=== PATIENT | female | born 1955 | race Caucasian/White ===

== ENCOUNTER 2024-06-05 21:22 | Inpatient (IN) | payer MEDICARE, OTHER ==
[~2024-06-05] VITALS: Ht 152.4 cm; Wt 41.7 kg
[2024-06-05] MEDS ORDERED: SODIUM CHLORIDE FLUSH 10 ML SYR INJ PRN (21:45)
[2024-06-05] MEDS: FUROSEMIDE INJ 10 MG/ML 4 ML VIAL IV ONE (22:53)
[2024-06-05 23:11] LABS: ALBUMIN 3.6 g/dL (3.5-5.0); ALBUMIN/GLOBULIN RATIO 0.8 (0.8-2.0); ANION GAP 18.4 mmol/L (8-16); BILIRUBIN,TOTAL 1.5 mg/dL (0.2-1.2); CALCIUM 9.3 mg/dL (8.4-10.2); CREATININE, SERUM 1.21 mg/dL (0.57-1.11); POTASSIUM 4.4 mmol/L (3.5-5.1); TOTAL PROTEIN 7.9 g/dL (6.5-8.1)
[2024-06-05 23:17] LABS: TROPONIN I 0.232 ng/mL (0-0.300)
[2024-06-06] VITALS (17 sets, daily range): BP systolic 108–172; BP diastolic 55–96; PULSE 61–109; RESP 18–24; TEMP 96.8–98.2; O2SAT 89–100
[2024-06-06] MEDS ORDERED: SODIUM CHLORIDE FLUSH 10 ML SYR INJ PRN
[2024-06-06] MEDS ORDERED: CLONIDINE HCL 0.1 MG TAB ONE (00:28)
[2024-06-06 00:47] LABS: BASOPHILS # (AUTO) 0.1 (0.0-0.1); BASOPHILS % 0.7 % (0.0-1.0); EOSINOPHILS # (AUTO) 0.1 (0.0-0.4); EOSINOPHILS % 0.6 % (0.0-6.0); HEMATOCRIT 46.2 % (34.2-44.1); HEMOGLOBIN 12.5 g/dL (12.0-16.0); LYMPHOCYTES # (AUTO) 1.6 (1.0-3.2); LYMPHOCYTES % 19.4 % (18.0-39.1); MEAN CORPUSCULAR HEMOGLOBIN 22.2 pg (28-32); MEAN CORPUSCULAR HGB CONC 27.1 g/dL (31-35); MEAN CORPUSCULAR VOLUME 82.1 fL (81-99); MONOCYTES # (AUTO) 0.5 (0.2-0.8); MONOCYTES % 5.9 % (4.4-11.3); NEUTROPHILS # (AUTO) 5.9 (2.1-6.9); NEUTROPHILS % 73.2 % (38.7-80.0); PLATELET COUNT 172 x10e3/uL (140-360); RED BLOOD COUNT 5.63 x10e6/uL (3.6-5.1); RED CELL DISTRIBUTION WIDTH 20.7 % (11.7-14.4); WHITE BLOOD COUNT 8.11 x10e3/uL (4.8-10.8)
[2024-06-06 01:04] LABS: TROPONIN I 0.229 ng/mL (0-0.300)
[2024-06-06] MEDS: CLONIDINE HCL 0.2 MG TAB PO ONE (01:09)
[2024-06-06] MEDS ORDERED: HYDRALAZINE HCL 20 MG/ML VIAL IV PRN ×2 (02:45→14:15)
[2024-06-06 03:18] LABS: ANISOCYTOSIS SLIGHT; HYPOCHROMASIA SLIGHT; OVALOCYTES FEW
[2024-06-06 03:19] LABS: PLATELET ESTIMATE ADEQUATE; PLATELET MORPHOLOGY COMMENT NORMAL; RBC MORPHOLOGY COMMENT ABNORMAL
[2024-06-06] MEDS: ALBUTEROL/IPRATROPIUM 3 ML NEB NEB SCH (03:30)
[2024-06-06 06:46] LABS: TROPONIN I 0.22 ng/mL (0-0.300)
[2024-06-06] MEDS: FUROSEMIDE INJ 10 MG/ML 4 ML VIAL IV SCH (09:26)
[2024-06-06] MEDS ORDERED: ACETAMINOPHEN 325 MG TAB PO PRN (14:15)
[2024-06-06] MEDS ORDERED: DOCUSATE SODIUM 100 MG CAP PO PRN (14:15)
[2024-06-06] MEDS ORDERED: DEXTROSE 50% SYRINGE 50 ML IV PRN (14:15)
[2024-06-06] MEDS ORDERED: DIPHENHYDRAMINE HCL 25 MG CAP PO PRN (14:15)
[2024-06-06] MEDS ORDERED: ALBUTEROL/IPRATROPIUM 3 ML NEB NEB PRN (14:15)
[2024-06-06] MEDS ORDERED: SIMETHICONE 80 MG CHEW PO PRN (14:15)
[2024-06-06] MEDS ORDERED: NICOTINE 7 MG PATCH TOP PRN (15:45)
[2024-06-06] MEDS: METOLAZONE 5 MG TAB PO ONE (16:03)
[2024-06-06] MEDS: SODIUM BICARBONATE 650 MG TAB PO SCH (16:04)
[2024-06-06] MEDS: FUROSEMIDE INJ 100 MG in SODIUM CHLORIDE 0.9% 90 ML IV SCH (16:04)
[2024-06-06] MEDS: THIAMINE HCL 100 MG TAB PO SCH (16:04)
[2024-06-06] MEDS: BENZONATATE 100 MG CAP PO PRN (16:05)
[2024-06-06] MEDS: CARVEDILOL 3.125 MG TAB PO SCH (16:06)
[2024-06-06] MEDS: ENOXAPARIN SOD INJ 40 MG/0.4 ML SYR SC SCH (16:19)
[2024-06-06 16:22] LABS: TROPONIN I 0.171 ng/mL (0-0.300)
[2024-06-06 20:16] LABS: ABG PH 7.49 (7.35-7.45)
[2024-06-06 20:17] LABS: ABG HCO3 30 mmol/L (22-26); ABG PCO2 39 mmHg (35-45); ABG PO2 174 mmHg (80-105); ABG TCO2 31
[2024-06-06] MEDS: ATORVASTATIN 20 MG TAB PO SCH (20:43)
[2024-06-06 23:00] LABS: AMPHETAMINES SCREEN,URINE NEGATIVE (NEGATIVE); OPIATES SCREEN,URINE NEGATIVE (NEGATIVE); PHENCYCLIDINE SCREEN,URINE NEGATIVE (NEGATIVE)
[2024-06-06 23:01] LABS: BENZODIAZEPINES SCREEN,URINE NEGATIVE (NEGATIVE); CANNABINOIDS SCREEN,URINE NEGATIVE (NEGATIVE); METHADONE SCREEN, URINE NEGATIVE (NEGATIVE)
[2024-06-07] VITALS (14 sets, daily range): BP systolic 108–128; BP diastolic 55–77; PULSE 63–82; RESP 16–21; TEMP 97.2–98; O2SAT 91–100
[2024-06-07] MEDS: IBUPROFEN 400 MG TAB PO ONE (07:20)
[2024-06-07] MEDS: PANTOPRAZOLE SOD 40 MG TABEC PO SCH (07:20)
[2024-06-07 07:26] LABS: BASOPHILS # (AUTO) 0.1 (0.0-0.1); BASOPHILS % 0.6 % (0.0-1.0); EOSINOPHILS # (AUTO) 0.3 (0.0-0.4); EOSINOPHILS % 4.2 % (0.0-6.0); HEMATOCRIT 38.9 % (34.2-44.1); HEMOGLOBIN 11.1 g/dL (12.0-16.0); LYMPHOCYTES # (AUTO) 1.1 (1.0-3.2); LYMPHOCYTES % 13.6 % (18.0-39.1); MEAN CORPUSCULAR HEMOGLOBIN 22.5 pg (28-32); MEAN CORPUSCULAR HGB CONC 28.5 g/dL (31-35); MEAN CORPUSCULAR VOLUME 78.9 fL (81-99); MONOCYTES # (AUTO) 0.5 (0.2-0.8); MONOCYTES % 5.9 % (4.4-11.3); NEUTROPHILS # (AUTO) 6.1 (2.1-6.9); NEUTROPHILS % 75.6 % (38.7-80.0); PLATELET COUNT 176 x10e3/uL (140-360); RED BLOOD COUNT 4.93 x10e6/uL (3.6-5.1); WHITE BLOOD COUNT 8.02 x10e3/uL (4.8-10.8)
[2024-06-07 08:12] LABS: ANION GAP 16.1 mmol/L (8-16); CALCIUM 8.7 mg/dL (8.4-10.2); CREATININE, SERUM 1.47 mg/dL (0.57-1.11); MAGNESIUM 1.5 MG/DL (1.3-2.1); PHOSPHORUS 4.5 MG/DL (2.3-4.7)
[2024-06-07 08:14] LABS: POTASSIUM 3.1 mmol/L (3.5-5.1)
[2024-06-07 08:32] LABS: THYROID STIMULATING HORMONE 2.422 uIU/mL (0.350-4.940)
[2024-06-07 09:06] LABS: EOSINOPHILS % (MANUAL) 2 % (0-7); LYMPHOCYTES % (MANUAL) 16 % (19-48); MONOCYTES % (MANUAL) 2 % (3.4-9.0); NEUTROPHILS % (MANUAL) 79 % (40-74); PLATELET ESTIMATE ADEQUATE; PLATELET MORPHOLOGY COMMENT NORMAL; RBC MORPHOLOGY COMMENT NORMAL; REACTIVE LYMPHOCYTES 1
[2024-06-07] MEDS: ASPIRIN 81 MG ENTERIC COATED PO SCH (09:27)
[2024-06-07] MEDS: POTASSIUM CHLORIDE 20 MEQ TAB CR PO PRN (09:28)
[2024-06-07] MEDS: POTASSIUM CHLORIDE 20 MEQ TAB CR PO ONE (12:16)
[2024-06-07] MEDS: FUROSEMIDE INJ 10 MG/ML 2 ML VIAL IV SCH (13:29)
[2024-06-07] MEDS ORDERED: FUROSEMIDE INJ 10 MG/ML 2 ML VIAL IV SCH (17:00)
[2024-06-08] VITALS (12 sets, daily range): BP systolic 97–124; BP diastolic 51–95; PULSE 63–88; RESP 17–20; TEMP 97.2–98.1; O2SAT 95–100
[2024-06-08] MEDS: MELATONIN 5 MG TABLET PO PRN (00:38)
[2024-06-08] MEDS: FUROSEMIDE 40 MG TAB PO SCH (08:50)
[2024-06-08 10:51] LABS: ANION GAP 14.1 mmol/L (8-16); CALCIUM 8.7 mg/dL (8.4-10.2); CREATININE, SERUM 1.63 mg/dL (0.57-1.11); POTASSIUM 4.1 mmol/L (3.5-5.1)
[2024-06-08] MEDS: SODIUM CHLORIDE 0.9% 500ML 500 ML IV ONE (14:09)
[2024-06-08] MEDS: ONDANSETRON HCL INJ 2MG/ML 2ML 2 MG/ML VIAL IV PRN (14:09)
[2024-06-09] VITALS (11 sets, daily range): BP systolic 100–135; BP diastolic 59–90; PULSE 65–90; RESP 18–20; TEMP 97.4–97.9; O2SAT 92–100
[2024-06-09 05:41] LABS: BASOPHILS % 0.3 % (0.0-1.0); EOSINOPHILS # (AUTO) 0.2 (0.0-0.4); EOSINOPHILS % 3.1 % (0.0-6.0); HEMOGLOBIN 11.2 g/dL (12.0-16.0); LYMPHOCYTES # (AUTO) 1.6 (1.0-3.2); LYMPHOCYTES % 20.1 % (18.0-39.1); MEAN CORPUSCULAR HEMOGLOBIN 22.4 pg (28-32); MEAN CORPUSCULAR VOLUME 79.8 fL (81-99); MONOCYTES # (AUTO) 0.6 (0.2-0.8); MONOCYTES % 7.2 % (4.4-11.3); NEUTROPHILS # (AUTO) 5.4 (2.1-6.9); NEUTROPHILS % 68.9 % (38.7-80.0); PLATELET COUNT 218 x10e3/uL (140-360); RED BLOOD COUNT 5.01 x10e6/uL (3.6-5.1); RED CELL DISTRIBUTION WIDTH 19.7 % (11.7-14.4); WHITE BLOOD COUNT 7.76 x10e3/uL (4.8-10.8)
[2024-06-09 06:56] LABS: ANION GAP 15.3 mmol/L (8-16); CALCIUM 9.2 mg/dL (8.4-10.2); CREATININE, SERUM 1.85 mg/dL (0.57-1.11)
[2024-06-09 07:14] LABS: POTASSIUM 3.3 mmol/L (3.5-5.1)
[2024-06-09] MEDS: POTASSIUM CHLORIDE 20 MEQ TAB CR PO ONE (11:18)
[2024-06-09] MEDS: SODIUM CHLORIDE 0.9% 500ML 500 ML IV ONE (11:18)
[2024-06-09 16:40] LABS: ANION GAP 17.5 mmol/L (8-16); CALCIUM 8.7 mg/dL (8.4-10.2); CREATININE, SERUM 1.67 mg/dL (0.57-1.11)
[2024-06-09 16:45] LABS: POTASSIUM 4.5 mmol/L (3.5-5.1)
== END 2024-06-09 17:38 | disposition home or self-care (01) | DRG 291 ==
LOC: ER 21:29 → ERHOLD 23:56 → MED/SURG2 06-06 02:30
PROVIDERS: ADMIT Internal Medicine; ATTEND Internal Medicine
DX: I13.0 Hypertensive heart and chronic kidney disease with heart failure and stage 1 through stage 4 chronic kidney disease, or unspecified chronic kidney disease (principal); I50.43 Acute on chronic combined systolic (congestive) and diastolic (congestive) heart failure; J96.21 Acute and chronic respiratory failure with hypoxia; J96.22 Acute and chronic respiratory failure with hypercapnia; N17.9 Acute kidney failure, unspecified; E87.20 Acidosis, unspecified; Z68.1 Body mass index [BMI] 19.9 or less, adult; R63.6 Underweight; Z99.81 Dependence on supplemental oxygen; I42.0 Dilated cardiomyopathy; N18.30 Chronic kidney disease, stage 3 unspecified; J44.9 Chronic obstructive pulmonary disease, unspecified; I25.10 Atherosclerotic heart disease of native coronary artery without angina pectoris; F19.10 Other psychoactive substance abuse, uncomplicated; Z79.82 Long term (current) use of aspirin; Z95.5 Presence of coronary angioplasty implant and graft; Z90.710 Acquired absence of both cervix and uterus; F17.210 Nicotine dependence, cigarettes, uncomplicated; Z82.49 Family history of ischemic heart disease and other diseases of the circulatory system
CPT/HCPCS: 36415; 36600; 70450; 71045; 76604; 80048; 80053; 80307; 82550; 82805; 83036; 83735; 83880; 84100; 84443; 84484; 85025; 93005; 93306; 94640; 94660; 94799; 99284; J1650; J1940; J2405; J3411; J7040; J7050

== ENCOUNTER 2024-08-18 16:49 | Inpatient (IN) | payer MEDICARE ==
[~2024-08-18] VITALS: Ht 152.4 cm; Wt 41.7 kg
[2024-08-18 17:21] LABS: BASOPHILS % 0.5 % (0.0-1.0); EOSINOPHILS # (AUTO) 0.1 (0.0-0.4); EOSINOPHILS % 0.9 % (0.0-6.0); HEMATOCRIT 40.1 % (34.2-44.1); HEMOGLOBIN 11.3 g/dL (12.0-16.0); LYMPHOCYTES # (AUTO) 1.4 (1.0-3.2); MEAN CORPUSCULAR HEMOGLOBIN 24.5 pg (28-32); MEAN CORPUSCULAR HGB CONC 28.2 g/dL (31-35); MONOCYTES # (AUTO) 0.5 (0.2-0.8); MONOCYTES % 6.4 % (4.4-11.3); NEUTROPHILS # (AUTO) 6.1 (2.1-6.9); PLATELET COUNT 177 x10e3/uL (140-360); RED BLOOD COUNT 4.61 x10e6/uL (3.6-5.1); RED CELL DISTRIBUTION WIDTH 21.1 % (11.7-14.4); WHITE BLOOD COUNT 8.13 x10e3/uL (4.8-10.8)
[2024-08-18 19:01] LABS: AMPHETAMINES SCREEN,URINE NEGATIVE (NEGATIVE); BENZODIAZEPINES SCREEN,URINE NEGATIVE (NEGATIVE); COCAINE SCREEN,URINE NEGATIVE (NEGATIVE); OPIATES SCREEN,URINE NEGATIVE (NEGATIVE); PHENCYCLIDINE SCREEN,URINE NEGATIVE (NEGATIVE)
[2024-08-18 19:02] LABS: CANNABINOIDS SCREEN,URINE POSITIVE (NEGATIVE); METHADONE SCREEN, URINE NEGATIVE (NEGATIVE)
[2024-08-18 19:03] VITALS: TEMP 97.7
[2024-08-18 19:06] LABS: ALBUMIN 3.1 g/dL (3.5-5.0); ALBUMIN/GLOBULIN RATIO 0.8 (0.8-2.0); ANION GAP 16.8 mmol/L (8-16); BILIRUBIN,TOTAL 1.3 mg/dL (0.2-1.2); CALCIUM 8.8 mg/dL (8.4-10.2); CREATININE, SERUM 1.2 mg/dL (0.57-1.11); POTASSIUM 4.8 mmol/L (3.5-5.1)
[2024-08-18 19:11] LABS: TROPONIN I 0.002 ng/mL (0-0.300)
[2024-08-18] MEDS: SODIUM CHLORIDE 0.9% 500ML 500 ML IV ONE (20:26)
[2024-08-18] MEDS: LABETALOL HCL 5 MG/ML 20ML VIAL IV STA (20:27)
[2024-08-18] MEDS ORDERED: LABETALOL HCL 20 ML ONE (20:29)
[2024-08-18] MEDS ORDERED: IOPAMIDOL 370 MG/ML 100 ML INFUS..BTL INJ ONE (20:31)
[2024-08-18 21:39] VITALS: PULSE 83; RESP 22
[2024-08-18] MEDS ORDERED: SODIUM CHLORIDE FLUSH 10 ML SYR INJ PRN (22:45)
[2024-08-18] MEDS ORDERED: ONDANSETRON HCL INJ 2MG/ML 2ML 2 MG/ML VIAL IV PRN (22:45)
[2024-08-18] MEDS: ASPIRIN 81 MG CHEW TAB PO ONE (23:37)
[2024-08-19] VITALS (14 sets, daily range): BP systolic 110–171; BP diastolic 57–112; PULSE 63–95; RESP 17–24; TEMP 96.9–97.8; O2SAT 96–100
[2024-08-19] MEDS: ALBUTEROL/IPRATROPIUM 3 ML NEB NEB SCH (04:15)
[2024-08-19] MEDS: ALBUTEROL/IPRATROPIUM 3 ML NEB ONE (04:22)
[2024-08-19 07:33] LABS: BASOPHILS % 0.4 % (0.0-1.0); EOSINOPHILS # (AUTO) 0.1 (0.0-0.4); EOSINOPHILS % 0.6 % (0.0-6.0); HEMATOCRIT 39.4 % (34.2-44.1); HEMOGLOBIN 11.5 g/dL (12.0-16.0); LYMPHOCYTES # (AUTO) 1.6 (1.0-3.2); LYMPHOCYTES % 19.4 % (18.0-39.1); MEAN CORPUSCULAR HEMOGLOBIN 24.6 pg (28-32); MEAN CORPUSCULAR HGB CONC 29.2 g/dL (31-35); MEAN CORPUSCULAR VOLUME 84.2 fL (81-99); MONOCYTES # (AUTO) 0.4 (0.2-0.8); MONOCYTES % 5.3 % (4.4-11.3); NEUTROPHILS % 73.8 % (38.7-80.0); PLATELET COUNT 153 x10e3/uL (140-360); RED BLOOD COUNT 4.68 x10e6/uL (3.6-5.1); RED CELL DISTRIBUTION WIDTH 20.5 % (11.7-14.4); WHITE BLOOD COUNT 8.15 x10e3/uL (4.8-10.8)
[2024-08-19 07:53] LABS: ALBUMIN 2.9 g/dL (3.5-5.0); ALBUMIN/GLOBULIN RATIO 0.9 (0.8-2.0); ANION GAP 17.5 mmol/L (8-16); BILIRUBIN,TOTAL 1.4 mg/dL (0.2-1.2); CALCIUM 8.6 mg/dL (8.4-10.2); CREATININE, SERUM 1.26 mg/dL (0.57-1.11); POTASSIUM 4.5 mmol/L (3.5-5.1); TOTAL PROTEIN 6.1 g/dL (6.5-8.1)
[2024-08-19 08:04] LABS: TROPONIN I < 0.05 ng/mL (0.0-0.40)
[2024-08-19 08:14] LABS: CREATINE KINASE 71 IU/L (29-168)
[2024-08-19] MEDS ORDERED: ACETAMINOPHEN 325 MG TAB PO PRN (10:15)
[2024-08-19] MEDS: CLONIDINE HCL 0.1 MG TAB PO PRN (10:22)
[2024-08-19] MEDS ORDERED: ASPIRIN 81 MG CHEW TAB PO SCH (12:15)
[2024-08-19] MEDS: FUROSEMIDE 40 MG TAB PO SCH (12:40)
[2024-08-19] MEDS: ASPIRIN 81 MG CHEW TAB PO SCH (12:40)
[2024-08-19] MEDS: CARVEDILOL 12.5 MG TAB PO SCH (12:41)
[2024-08-19] MEDS ORDERED: HYDROXYZINE HCL 25 MG TAB PO PRN (17:45)
[2024-08-19] MEDS: ENOXAPARIN SOD INJ 40 MG/0.4 ML SYR SC SCH (18:35)
[2024-08-19] MEDS: PREDNISONE 20 MG TAB PO SCH (18:35)
[2024-08-19] MEDS: LABETALOL HCL 5 MG/ML 20ML VIAL IV ONE (19:52)
[2024-08-19] MEDS: ATORVASTATIN 20 MG TAB PO SCH (21:13)
[2024-08-19] MEDS: ACETAMINOPHEN 325 MG TAB PO PRN (21:15)
[2024-08-20] VITALS: BP 115/69; PULSE 57; RESP 18; TEMP 97.5; O2SAT 97
[2024-08-20 03:10] VITALS: PULSE 71; RESP 18; O2SAT 99
[2024-08-20 04:00] VITALS: BP 111/68; PULSE 52; RESP 18; TEMP 97.5; O2SAT 100
[2024-08-20 05:35] LABS: BASOPHILS % 0.2 % (0.0-1.0); HEMATOCRIT 38.7 % (34.2-44.1); HEMOGLOBIN 11.3 g/dL (12.0-16.0); LYMPHOCYTES # (AUTO) 0.6 (1.0-3.2); LYMPHOCYTES % 8.7 % (18.0-39.1); MEAN CORPUSCULAR HGB CONC 29.2 g/dL (31-35); MEAN CORPUSCULAR VOLUME 82.3 fL (81-99); MONOCYTES # (AUTO) 0.1 (0.2-0.8); NEUTROPHILS # (AUTO) 5.7 (2.1-6.9); NEUTROPHILS % 88.6 % (38.7-80.0); PLATELET COUNT 140 x10e3/uL (140-360); RED CELL DISTRIBUTION WIDTH 20.2 % (11.7-14.4); WHITE BLOOD COUNT 6.42 x10e3/uL (4.8-10.8)
[2024-08-20 05:54] LABS: ANION GAP 15.8 mmol/L (8-16); CALCIUM 8.1 mg/dL (8.4-10.2); CREATININE, SERUM 1.52 mg/dL (0.57-1.11); POTASSIUM 3.8 mmol/L (3.5-5.1)
[2024-08-20 08:00] VITALS: BP 115/63; PULSE 51; RESP 20; TEMP 97.4; O2SAT 100
[2024-08-20 08:07] VITALS: PULSE 66; RESP 20; O2SAT 99
[2024-08-20 09:48] LABS: ANISOCYTOSIS MODERATE; HYPOCHROMASIA MODERATE; PLATELET ESTIMATE ADEQUATE; PLATELET MORPHOLOGY COMMENT NORMAL; POLYCHROMASIA FEW; RBC MORPHOLOGY COMMENT ABNORMAL
[2024-08-20 12:00] VITALS: BP 111/65; PULSE 58; RESP 20; TEMP 97.5; O2SAT 100
[2024-08-20] MEDS ORDERED: PREDNISONE20 MG PO (12:40)
[2024-08-20] MEDS ORDERED: ATORVASTATIN CA20 MG PO (12:40)
[2024-08-20] MEDS ORDERED: COREG12.5 MG PO (12:40)
[2024-08-20] MEDS ORDERED: ASPIRIN CHEW81 MG PO (12:40)
[2024-08-20] MEDS ORDERED: FUROSEMIDE40 MG PO (12:40)
[2024-08-20] MEDS: INFLUENZA VIRUS VAC SPLIT INJ 0.5 ML SYR IM SCH (13:00)
[2024-08-20] MEDS: PNEUMOCOCCAL VACCINE POLYVALENT 23 MCG/0.5 ML VIAL IM SCH (13:00)
== END 2024-08-20 13:40 | disposition home or self-care (01) | DRG 191 ==
LOC: ER 16:54 → ERHOLD 22:38 → MED/SURG 23:56 → OBSVTOIN 08-20 11:41
PROVIDERS: ADMIT Internal Medicine; ATTEND Internal Medicine
DX: J44.1 Chronic obstructive pulmonary disease with (acute) exacerbation (principal); I11.0 Hypertensive heart disease with heart failure; I50.22 Chronic systolic (congestive) heart failure; T76.01XA Adult neglect or abandonment, suspected, initial encounter; E78.00 Pure hypercholesterolemia, unspecified; F41.9 Anxiety disorder, unspecified; Z91.148 Patient's other noncompliance with medication regimen for other reason; Z90.710 Acquired absence of both cervix and uterus; Z95.5 Presence of coronary angioplasty implant and graft; F17.210 Nicotine dependence, cigarettes, uncomplicated
CPT/HCPCS: 36415; 71045; 71260; 80048; 80053; 80307; 82550; 83880; 84484; 85025; 85379; 93005; 94640; 94799; 99285; G0378; J1650; J7040; J7512; Q9967

== ENCOUNTER 2024-11-03 02:32 | Inpatient (IN) | payer MEDICARE ==
[~2024-11-03] VITALS: Ht 152.4 cm; Wt 44.5 kg
[2024-11-03] VITALS (41 sets, daily range): BP systolic 113–178; BP diastolic 52–104; PULSE 71–118; RESP 18–35; TEMP 97.6–98.7; O2SAT 87–100
[~2024-11-03 02:32] MED LIST: ASPIRIN CHEW81 MG PO; ATORVASTATIN CA20 MG PO; COREG12.5 MG PO; FUROSEMIDE40 MG PO; PREDNISONE20 MG PO
[2024-11-03] MEDS: METHYLPREDNISOLONE SOD SUCC 125 MG/2ML VIAL IV ONE (03:23)
[2024-11-03] MEDS: LORAZEPAM INJ 2 MG/ML VIAL IV ONE (03:26)
[2024-11-03 03:44] LABS: CLARITY,URINE CLEAR (CLEAR); COLOR,URINE YELLOW (YELLOW); LEUKOCYTE ESTERASE ,URINE NEGATIVE (NEGATIVE); NITRITE,URINE NEGATIVE (NEGATIVE); PH,URINE 5.5 (5 - 7)
[2024-11-03 03:45] LABS: AMPHETAMINES SCREEN,URINE POSITIVE (NEGATIVE); BENZODIAZEPINES SCREEN,URINE NEGATIVE (NEGATIVE); GLUCOSE, URINE NEGATIVE (NEGATIVE); KETONES,URINE NEGATIVE (NEGATIVE); OPIATES SCREEN,URINE NEGATIVE (NEGATIVE); PHENCYCLIDINE SCREEN,URINE NEGATIVE (NEGATIVE); PROTEIN,URINE DIPSTICK >=300 (NEGATIVE)
[2024-11-03 03:46] LABS: BILIRUBIN,URINE NEGATIVE (NEGATIVE); CANNABINOIDS SCREEN,URINE POSITIVE (NEGATIVE); COCAINE SCREEN,URINE NEGATIVE (NEGATIVE); METHADONE SCREEN, URINE NEGATIVE (NEGATIVE); URINE UROBILINOGEN 0.2 mg/dL (0.2 - 1)
[2024-11-03 03:50] LABS: BACTERIA,URINE MANY /HPF; EPITHELIAL CELLS,URINE MODERATE /LPF
[2024-11-03 04:04] LABS: BASOPHILS # (AUTO) 0.1 (0.0-0.1); BASOPHILS % 0.5 % (0.0-1.0); EOSINOPHILS % 0.2 % (0.0-6.0); HEMATOCRIT 47.8 % (34.2-44.1); HEMOGLOBIN 13.1 g/dL (12.0-16.0); LYMPHOCYTES # (AUTO) 1.1 (1.0-3.2); LYMPHOCYTES % 10.7 % (18.0-39.1); MEAN CORPUSCULAR HEMOGLOBIN 26.6 pg (28-32); MEAN CORPUSCULAR HGB CONC 27.4 g/dL (31-35); MONOCYTES # (AUTO) 0.6 (0.2-0.8); NEUTROPHILS # (AUTO) 8.4 (2.1-6.9); NEUTROPHILS % 82.3 % (38.7-80.0); PLATELET COUNT 214 x10e3/uL (140-360); RED BLOOD COUNT 4.93 x10e6/uL (3.6-5.1); RED CELL DISTRIBUTION WIDTH 17.6 % (11.7-14.4); WHITE BLOOD COUNT 10.21 x10e3/uL (4.8-10.8)
[2024-11-03] MEDS: IPRATROPIUM BROMIDE 0.02% 2.5 ML NEB NEB ONE (04:20)
[2024-11-03 04:21] LABS: ALBUMIN 3.5 g/dL (3.5-5.0); ALBUMIN/GLOBULIN RATIO 0.9 (0.8-2.0); ANION GAP 21.2 mmol/L (8-16); BILIRUBIN,TOTAL 1.3 mg/dL (0.2-1.2); CALCIUM 9.5 mg/dL (8.4-10.2); CREATININE, SERUM 1.16 mg/dL (0.57-1.11); ETHANOL < 10.0 mg/dL (0.0-10.0); POTASSIUM 4.2 mmol/L (3.5-5.1); TOTAL PROTEIN 7.5 g/dL (6.5-8.1)
[2024-11-03] MEDS: ALBUTEROL SULF 0.083% NEB SOLN 3 ML NEB NEB STA (04:21)
[2024-11-03 04:35] LABS: TROPONIN I 0.125 ng/mL (0-0.300)
[2024-11-03 04:51] LABS: ABG HCO3 23 mmol/L (22-26); ABG PCO2 49 mmHg (35-45); ABG PH 7.28 (7.35-7.45); ABG PO2 108 mmHg (80-105); ABG TCO2 25
[2024-11-03] MEDS ORDERED: SODIUM CHLORIDE FLUSH 10 ML SYR INJ PRN (05:30)
[2024-11-03] MEDS: METHYLPREDNISOLONE SOD SUCC 40 MG/ML VIAL 1ML IV SCH ×2 (05:56→20:25)
[2024-11-03] MEDS: FUROSEMIDE INJ 10 MG/ML 4 ML VIAL IV ONE (05:56)
[2024-11-03] MEDS: ONDANSETRON HCL INJ 2MG/ML 2ML 2 MG/ML VIAL IV STA (05:56)
[2024-11-03] MEDS: ALBUTEROL/IPRATROPIUM 3 ML NEB NEB SCH (05:58)
[2024-11-03] MEDS: ASPIRIN 81 MG CHEW TAB PO SCH (08:55)
[2024-11-03] MEDS: CARVEDILOL 12.5 MG TAB PO SCH (08:56)
[2024-11-03] MEDS: NICOTINE 21 MG/EA PATCH TOP SCH (08:56)
[2024-11-03] MEDS: FUROSEMIDE INJ 10 MG/ML 4 ML VIAL IV SCH (08:58)
[2024-11-03] MEDS ORDERED: ONDANSETRON HCL INJ 2MG/ML 2ML 2 MG/ML VIAL IV PRN (09:19)
[2024-11-03] MEDS ORDERED: ACETAMINOPHEN 325 MG TAB PO PRN (10:00)
[2024-11-03] MEDS ORDERED: LIDOCAINE 4% PATCH TP PRN (10:00)
[2024-11-03] MEDS ORDERED: HYDRALAZINE HCL 20 MG/ML VIAL IV PRN (10:00)
[2024-11-03] MEDS ORDERED: POTASSIUM CHLORIDE 20 MEQ TAB CR PO PRN (10:00)
[2024-11-03] MEDS ORDERED: DIPHENHYDRAMINE HCL 25 MG CAP PO PRN (10:00)
[2024-11-03] MEDS ORDERED: ALBUTEROL/IPRATROPIUM 3 ML NEB NEB PRN (10:00)
[2024-11-03] MEDS ORDERED: DOCUSATE SODIUM 100 MG CAP PO PRN (10:00)
[2024-11-03] MEDS ORDERED: DEXTROSE 50% SYRINGE 50 ML IV PRN (10:00)
[2024-11-03] MEDS ORDERED: SIMETHICONE 80 MG CHEW PO PRN (10:00)
[2024-11-03] MEDS ORDERED: BENZONATATE 100 MG CAP PO PRN (10:00)
[2024-11-03 13:02] LABS: ABG HCO3 28 mmol/L (22-26); ABG PCO2 43 mmHg (35-45); ABG PH 7.41 (7.35-7.45); ABG PO2 178 mmHg (80-105); ABG TCO2 29
[2024-11-03 13:17] LABS: CORONAVIRUS COVID-19 AG NEGATIVE (NEGATIVE); INFLUENZA A AG NEGATIVE (NEGATIVE); INFLUENZA B AG NEGATIVE (NEGATIVE)
[2024-11-03 13:28] LABS: ANION GAP 18.7 mmol/L (8-16); CALCIUM 9.2 mg/dL (8.4-10.2); CREATININE, SERUM 1.1 mg/dL (0.57-1.11); POTASSIUM 3.7 mmol/L (3.5-5.1)
[2024-11-03 13:40] LABS: TROPONIN I 0.21 ng/mL (0.0-0.40)
[2024-11-03] MEDS: ENOXAPARIN SOD INJ 40 MG/0.4 ML SYR SC SCH (16:30)
[2024-11-03] MEDS: ATORVASTATIN 20 MG TAB PO SCH (20:25)
[2024-11-04] VITALS (17 sets, daily range): BP systolic 102–140; BP diastolic 60–87; PULSE 63–93; RESP 16–23; TEMP 98–98.8; O2SAT 95–100
[2024-11-04 06:29] LABS: BASOPHILS % 0.1 % (0.0-1.0); HEMATOCRIT 41.8 % (34.2-44.1); HEMOGLOBIN 12.6 g/dL (12.0-16.0); LYMPHOCYTES # (AUTO) 0.7 (1.0-3.2); LYMPHOCYTES % 4.7 % (18.0-39.1); MEAN CORPUSCULAR HEMOGLOBIN 26.5 pg (28-32); MEAN CORPUSCULAR HGB CONC 30.1 g/dL (31-35); MONOCYTES # (AUTO) 0.4 (0.2-0.8); MONOCYTES % 2.6 % (4.4-11.3); NEUTROPHILS % 92.1 % (38.7-80.0); PLATELET COUNT 198 x10e3/uL (140-360); RED BLOOD COUNT 4.75 x10e6/uL (3.6-5.1); RED CELL DISTRIBUTION WIDTH 17.7 % (11.7-14.4); WHITE BLOOD COUNT 15.23 x10e3/uL (4.8-10.8)
[2024-11-04] MEDS: PANTOPRAZOLE SOD 40 MG TABEC PO SCH (07:44)
[2024-11-04] MEDS: POTASSIUM CHLORIDE 20 MEQ TAB CR PO STA (07:44)
[2024-11-04] MEDS: METHYLPREDNISOLONE SOD SUCC 40 MG/ML VIAL 1ML IV SCH (08:07)
[2024-11-04 08:32] LABS: ANION GAP 15.7 mmol/L (8-16); CALCIUM 8.8 mg/dL (8.4-10.2); CREATININE, SERUM 1.66 mg/dL (0.57-1.11); POTASSIUM 3.7 mmol/L (3.5-5.1)
[2024-11-04 08:53] LABS: TROPONIN I 0.63 ng/mL (0-0.300)
[2024-11-04] MEDS: MELATONIN 5 MG TABLET PO PRN (20:51)
[2024-11-05] VITALS (15 sets, daily range): BP systolic 124–148; BP diastolic 68–120; PULSE 77–91; RESP 17–30; TEMP 97.9–98.7; O2SAT 94–100
[2024-11-05 06:54] LABS: ABG HCO3 23 mmol/L (22-26); ABG PCO2 49 mmHg (35-45); ABG PH 7.28 (7.35-7.45); ABG PO2 108 mmHg (80-105); ABG TCO2 25
[2024-11-05 06:54] LABS: ABG HCO3 28 mmol/L (22-26); ABG PCO2 43 mmHg (35-45); ABG PH 7.41 (7.35-7.45); ABG PO2 178 mmHg (80-105); ABG TCO2 29
[2024-11-05 06:56] LABS: ABG HCO3 27 mmol/L (22-26); ABG PCO2 32 mmHg (35-45); ABG PH 7.53 (7.35-7.45); ABG PO2 174 mmHg (80-105); ABG TCO2 28
[2024-11-05 06:57] LABS: BASOPHILS % 0.4 % (0.0-1.0); EOSINOPHILS # (AUTO) 0.1 (0.0-0.4); EOSINOPHILS % 0.6 % (0.0-6.0); HEMATOCRIT 39.5 % (34.2-44.1); HEMOGLOBIN 11.5 g/dL (12.0-16.0); LYMPHOCYTES # (AUTO) 1.5 (1.0-3.2); LYMPHOCYTES % 13.8 % (18.0-39.1); MEAN CORPUSCULAR HEMOGLOBIN 26.3 pg (28-32); MEAN CORPUSCULAR HGB CONC 29.1 g/dL (31-35); MEAN CORPUSCULAR VOLUME 90.4 fL (81-99); MONOCYTES # (AUTO) 0.6 (0.2-0.8); MONOCYTES % 5.3 % (4.4-11.3); NEUTROPHILS # (AUTO) 8.7 (2.1-6.9); NEUTROPHILS % 79.5 % (38.7-80.0); PLATELET COUNT 192 x10e3/uL (140-360); RED BLOOD COUNT 4.37 x10e6/uL (3.6-5.1); WHITE BLOOD COUNT 10.99 x10e3/uL (4.8-10.8)
[2024-11-05 07:27] LABS: ALBUMIN 2.7 g/dL (3.5-5.0); ANION GAP 14.1 mmol/L (8-16); BILIRUBIN,TOTAL 0.4 mg/dL (0.2-1.2); CALCIUM 8.4 mg/dL (8.4-10.2); CREATININE, SERUM 1.34 mg/dL (0.57-1.11); TOTAL PROTEIN 5.5 g/dL (6.5-8.1)
[2024-11-05 07:47] LABS: POTASSIUM 5.1 mmol/L (3.5-5.1)
[2024-11-05] MEDS: FUROSEMIDE INJ 10 MG/ML 4 ML VIAL IV ONE (18:17)
[2024-11-05] MEDS: SOD POLYSTYRENE SULFONATE SUSP 15 GM/60 ML BTL PO ONE (19:36)
[2024-11-06] VITALS (13 sets, daily range): BP systolic 132–163; BP diastolic 73–94; PULSE 72–89; RESP 16–28; TEMP 97.3–98; O2SAT 94–99
[2024-11-06 07:42] LABS: CALCIUM 8.5 mg/dL (8.4-10.2); CREATININE, SERUM 1.34 mg/dL (0.57-1.11)
[2024-11-06] MEDS: PREDNISONE 20 MG TAB PO SCH (08:05)
== END 2024-11-06 13:55 | disposition home or self-care (01) | DRG 280 ==
LOC: ER 02:42 → ERHOLD 05:28 → ICU 07:30 → MED/SURG3 11-06 10:05 → ICU 11-06 10:13
PROVIDERS: ADMIT Internal Medicine; ATTEND Internal Medicine
PROC: 5A09357 Assistance with Respiratory Ventilation, Less than 24 Consecutive Hours, Continuous Positive Airway Pressure (ICD-10-PCS; principal; 2024-11-03)
PROC: 4A133R1 Monitoring of Arterial Saturation, Peripheral, Percutaneous Approach (ICD-10-PCS; 2024-11-03)
PROC: 02HV33Z Insertion of Infusion Device into Superior Vena Cava, Percutaneous Approach (ICD-10-PCS; 2024-11-03)
DX: I11.0 Hypertensive heart disease with heart failure (principal); I50.23 Acute on chronic systolic (congestive) heart failure; I21.A1 Myocardial infarction type 2; J96.91 Respiratory failure, unspecified with hypoxia; J44.1 Chronic obstructive pulmonary disease with (acute) exacerbation; N39.0 Urinary tract infection, site not specified; Z99.81 Dependence on supplemental oxygen; I25.10 Atherosclerotic heart disease of native coronary artery without angina pectoris; E78.5 Hyperlipidemia, unspecified; E87.5 Hyperkalemia; B95.0 Streptococcus, group A, as the cause of diseases classified elsewhere; Z11.52 Encounter for screening for COVID-19; R41.82 Altered mental status, unspecified; R54 Age-related physical debility; F15.10 Other stimulant abuse, uncomplicated; F12.10 Cannabis abuse, uncomplicated; Z79.82 Long term (current) use of aspirin; Z95.5 Presence of coronary angioplasty implant and graft; Z90.710 Acquired absence of both cervix and uterus; F17.210 Nicotine dependence, cigarettes, uncomplicated; Z82.49 Family history of ischemic heart disease and other diseases of the circulatory system
CPT/HCPCS: 36415; 36569; 36600; 51700; 71045; 80048; 80053; 80307; 80320; 81001; 82550; 82805; 83880; 84132; 84484; 85025; 87086; 93005; 93306; 94640; 94660; 94799; 99285; J0696; J1650; J1940; J2060; J2919; J7512